=== PATIENT | female | born 1945 | race Caucasian/White ===

== ENCOUNTER 2022-04-17 20:07 | Outpatient (CLI) | payer MEDICARE, BC, SELFPAY | END 2022-04-17 20:08 | disposition home or self-care (01) | LOC: AMB 04-20 05:23 | PROVIDERS: PCP Family Medicine; Visit Provider Family Medicine | DX: R42 Dizziness and giddiness (principal) | CPT/HCPCS: A0998 ==

== ENCOUNTER 2022-10-08 12:58 | Outpatient (CLI) | payer MEDICARE, BC, SELFPAY | END 2022-10-08 12:59 | disposition home or self-care (01) | LOC: AMB 10-11 05:35 | PROVIDERS: PCP Family Medicine; Visit Provider Family Medicine | DX: Z99.3 Dependence on wheelchair (principal) | CPT/HCPCS: A0425; A0428 ==

== ENCOUNTER 2022-10-08 13:30 | Outpatient (CLI) | payer MEDICARE, BC, SELFPAY | END 2022-10-08 13:31 | disposition home or self-care (01) | LOC: AMB 10-11 05:46 | PROVIDERS: PCP Family Medicine; Visit Provider Family Medicine | DX: R53.1 Weakness (principal) | CPT/HCPCS: A0425; A0428; A0429 ==

== ENCOUNTER 2022-10-08 13:50 | Emergency (ER) | payer MEDICARE, BC, SELFPAY ==
[2022-10-08] VITALS (15 sets, daily range): BP systolic 134–181; BP diastolic 76–90; PULSE 52–66; RESP 18; TEMP 36.6; O2SAT 93–97; BMI 25.8
--- NOTE | 2022-10-08 13:55 | ED.NURSE ---
Report received from EMS, Per EMS they were assigned to do a wheelchair transport from the clinic to the patients home and back today. Due to EMS not having wheel chairs to do the transfer, a EMS stretcher was used. When EMS arrived on scene at the clinic, Dr Gonsalves was unable to see patient and pt requested to be transport to the emergency room.
--- NOTE | 2022-10-08 14:30 | ED.NURSE ---
Per EMS and the patient, the patient is scheduled to be admitted to [facility] on Tuesday. I Called [facility] in attempt to verify patients admission status. Gas Station Operator spoke with Yasemin, , who reports that patient does not have a bed available to her on Tuesday. Ebony and her have been emailing back and forth regarding requirements for admission and Yasemin has not yet received all the required information and there for cannot be accepted.
--- NOTE | 2022-10-08 15:00 | ED.NURSE ---
Patients daughter, Ebony [phone], was called by health underwriter to inform that patient was here in the emergency room. Patient daughter was verbally aggressive, yelling and using profanity. Farm Field Manager attempted to deescalate without success. Farm Field Manager informed Ebony that the patient was brought in from the clinic. The patient was vitally stable, ambulating to and from the bathroom and had no complaints of pain, etc. Ebony stated that her mother has been weak and unable to walk. Farm Field Manager reported to Ebony that the patient has ambulated to the bathroom using a walk with stand by assistance.
--- NOTE | 2022-10-08 15:00 | CRLHL7_ITS ---
For Patients: As a result of the Century Cures Act, medical imaging exams and procedure reports are released immediately into your electronic medical record. You may view this report before your referring provider. If you have questions, please contact your health care provider. INDICATION: Leg weakness. TECHNIQUE: Lumbar spine 2 views. COMPARISON: Lumbar spine radiographs 12/05/2020. FINDINGS: There are 5 lumbar type vertebral bodies. Left convex lumbar curve. Normal vertebral body alignment in the sagittal plane. There is a mild superior endplate compression fracture of T11 which appears new since prior exam. Lumbar vertebral body heights are otherwise maintained. Advanced spondylotic changes including endplate spurring, facet arthropathy, and multilevel severe disc space narrowing. The sacroiliac joints are normal in appearance. Partially visualized sternotomy wire and vascular stent. Extensive abdominal vascular calcifications. IMPRESSION: 1. New age-indeterminate mild superior endplate compression fracture of T11. 2. Left convex lumbar curve and advanced spondylotic changes similar to prior exam. Dictated by Harini Rodriguez MD @ 10/08/2022 3:53:32 PM (Electronically Signed)
--- NOTE | 2022-10-08 15:15 | ED.NURSE ---
Call to SW to help assist with DC planning
--- NOTE | 2022-10-08 15:27 | PC.NURSE ---
Patient needed to use the restroom. Metalizer assisted patient to bathroom. Patient was able to ambulate with walker and SBA to and from the bathroom without difficulty.
--- NOTE | 2022-10-08 15:30 | ED.NURSE ---
Talked with patient. She denies any pain, difficulty breathing, N/V/D, neuro symptoms. Neuros intact, VSS, REESE equally. Patient asking why she was sent to the emergency room, she was under impression that she was going to be seen by Dr Gonsalves and then would be admitted to [facility] on tuesday. Explained to patient that Hearing And Speech Assistant spoke with Ad[facility] at [facility] and she is not going to be admitted [facility] due to additional paperwork that needs to be completed by her daughter. Pt verbalized understanding of plan and requsted to call and speak with daughter.
--- NOTE | 2022-10-08 15:43 | PC.SOCIAL ---
Patient was to be admitted to [facility] on Tuesday, Oct 11. However, [facility], Admissions, Dora states that they require an H & P, medication list, order to admit and recent notes. They cannot admit until they receive these. Patient was unable to see Dr. Gonsalves today, due to arriving to the clinic by gurney from ambulance. Patient was sent to the emergency room. Daughter was hoping that her mother would be able to transfer from hospital to [facility] [place]. Daughter was informed that is not possible.This typewriter assembly and parts inspector called Dr. Gonsavles's office and scheduled the first available appointment on Tuesday10/12/22 at 1:15pm. This typewriter assembly and parts inspector left voicemails for patient's daughter, Jimena [phone] about appointment to assist her mother in getting documentation for [facility] admission. Daughter has not returned phone call. Vulnerable Adult report made on 10/08/2022
--- NOTE | 2022-10-08 16:32 | ED_ITS ---
HPI - General Adult General Date Seen: 10/08/22 Chief complaint: Weakness Stated complaint: Evaluation Time Seen by Provider: 10/08/22 13:55 Source: patient, EMS and RN notes reviewed Mode of arrival: EMS Limitations: no limitations History of Present Illness HPI narrative: Patient is a 77-year-old who arrives here via EMS. Apparently, she had a clinic appointment today which had been scheduled to arrange the necessary paperwork and other documentation for her to go to [facility] for rehab. She lives at home with her daughter. She has had difficulties with generalized weakness and difficulty navigating stairs for quite some time. As a result, there was a plan to get her into [facility], but she needed such things as an H&P, updated med list, etcetera, and therefore this clinic appointment had been made. Her daughter apparently it sounds like due to both work commitments and also because of the fact that her mother does not feel confident walking on stairs, had called 911 to utilize ambulance transport to get her to the clinic. This would have been a wheelchair transport, but the ambulance does not have wheelchairs, therefore she went by stretcher. When she arrived to the clinic, they assumed that she could not walk and therefore they sent her to the ER instead. On arrival here, she denies any urgent complaints. She says that she has felt a little unsteady on her feet for quite some time, she says that sometimes her legs just seem to kind of give out on her. She uses her walker sometimes, she acknowledges that she probably should use it all the time, but she does not. She says that she avoids using the stairs because she is afraid of falling. She says she has not actually fallen for quite some time. She denies any pain. She does not have any acute symptoms. She denies any recent fevers, headaches she says she has chronic sinus congestion. She has not had any chest pain or difficulty breathing. She has not had any nausea, vomiting or diarrhea. No abdominal pain. She has chronic incontinence but does not have any dysuria or unusual frequency or urgency. She does not have any back pain. She does not have any unusual leg pain or weakness. I did speak on the phone with Dr. Lomas, he was under the impression that she was not able to ambulate at all. He noted that she would need x-rays of her lumbar spine as she had a history of scoliosis. Related Data Home Medications Medication Instructions Recorded Confirmed amiodarone 200 mg tablet 200 mg PO QDAY 09/06/22 apixaban 2.5 mg tablet (Eliquis) 2.5 mg PO BID 09/06/22 atorvastatin 20 mg tablet 20 mg PO QHS 09/06/22 calcium citrate 200 mg (950 mg) 200 mg PO QDAY 09/06/22 tablet carvedilol 6.25 mg tablet 9.375 mg PO BID 09/06/22 cholecalciferol (vitamin D3) 25 25 mcg PO QDAY 09/06/22 mcg (1,000 unit) capsule diphenoxylate-atropine 2.5 1 - 2 tab PO BID PRN 09/06/22 mg-0.025 mg tablet (Lomotil) furosemide 40 mg tablet 40 mg PO QDAY 09/06/22 hydralazine 25 mg tablet 25 mg PO BID 09/06/22 isosorbide dinitrate 30 mg tablet 30 mg PO TID 09/06/22 nitroglycerin 0.4 mg sublingual 0.4 mg sublingual Q5M PRN 09/06/22 tablet paroxetine HCl 20 mg tablet 20 mg PO QPM 09/06/22 sitagliptin phosphate 25 mg tablet 25 mg PO QDAY 09/06/22 (Januvia) Previous Rx's Medication Instructions Recorded carbidopa 25 mg-levodopa 100 mg See Rx Instructions .Route 09/06/22 disintegrating tablet .COMPLEX #150 tabs Allergies Allergy/AdvReac Type Severity Reaction Status Date / Time No Known Drug Allergies Allergy Verified 10/08/22 13:57 Review of Systems Status of ROS: Reports: 10 or more systems reviewed and unremarkable except as noted in History and below [facility] Surgical History History of appendectomy (06/17/09) History of cholecystectomy (06/17/09) History of coronary artery stent placement History of left breast biopsy (06/17/09) 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 In general, an alert, well-appearing elderly woman. Head: Normocephalic, atraumatic. Eyes: Pupils are equal reactive. Extraocular movements are full. Conjunctivae are normal. ENT: Mucous membranes are moist. Throat is normal. Neck: Supple without lymphadenopathy. Heart: Regular rate and rhythm. No murmur or rub. Lungs: Clear bilaterally. No increased work of breathing, crackles or wheezes. Abdomen: Soft and nontender. No organomegaly. Extremities: Well perfused. No edema. No calf tenderness. Pulses intact. Neurologic: Patient is alert and oriented to person and place. Speech is fluent. Face is symmetric. Moves all extremities equally. Strength is 5 of 5 in bilateral lower extremities. Sensation is intact to light touch. Her gait was stable with her walker, she was able to stand up from her bed without assistance. Gait is not broad-based or antalgic, she does walk slowly and with a slightly shuffling gait. Affect: Normal. Skin: Warm and dry. Well perfused. Const: Vital Signs, click to edit/add: Vital Signs - 24 hr 10/08/22 13:59 10/08/22 15:42 10/08/22 15:43 Temperature 97.9 F Pulse Rate 59 L 55 L Pulse Rate [Pulse Oximeter] 52 L Respiratory Rate 18 Blood Pressure 166/88 H Blood Pressure [Ri ght Upper Arm] 134/77 Pulse Oximetry 94 97 97 Oxygen Delivery Me thod Room Air 10/08/22 15:45 10/08/22 16:00 10/08/22 16:02 Temperature Pulse Rate 57 L 58 L 56 L Pulse Rate [Pulse Oximeter] Respiratory Rate Blood Pressure 165/83 H Blood Pressure [Ri ght Upper Arm] Pulse Oximetry 96 96 94 Oxygen Delivery Me thod 10/08/22 16:15 10/08/22 16:33 10/08/22 16:34 Temperature Pulse Rate 54 L 66 65 Pulse Rate [Pulse Oximeter] Respiratory Rate Blood Pressure 181/85 H Blood Pressure [Ri ght Upper Arm] Pulse Oximetry 94 96 96 Oxygen Delivery Me thod Documenting provider has reviewed patient's vital signs: yes Course Course Hospital Course: I did do x-rays of her lumbar spine since that was something that Dr. Gonsalves mentioned wanting done. She has significant degenerative changes, read by Radiology as following: IMPRESSION: 1. New age-indeterminate mild superior endplate compression fracture of T11. 2. Left convex lumbar curve and advanced spondylotic changes similar to prior exam She does not have any complaints of back pain, so I do not think the compression fracture is likely new. She does not have any neurologic deficiencies in her lower extremities. She is ambulatory here without difficulty. She does not have any acute complaints today. She she does not present to the emergency department because of concerns leading to her seeking emergency care, but rather an inadvertent diversion here from clinic. The patient's nurse spoke with her daughter shortly after her arrival here, and we attempted to have social science analyst speak with her as well, but after the nurses initial interaction with her she is no longer answering her phone. community services coordinator was finally able to speak with her daughter. Patient has remained stable here without complaints. We have made her a follow-up appoint with Dr. Gonsalves on Tuesday, her daughter is comfortable with discharge home at this time. Vital Signs Vital signs: Initial Vital Signs Temperature 97.9 F 10/08/22 13:59 Temperature Source Temporal Artery Scan 10/08/22 13:59 Pulse Rate 52 L 10/08/22 13:59 Pulse Rhythm 10/08/22 13:59 Respiratory Rate 18 10/08/22 13:59 Blood Pressure 134/77 10/08/22 13:59 Blood Pressure Mean 96 10/08/22 13:59 Blood Pressure Position Supine 10/08/22 13:59 Pulse Oximetry 94 10/08/22 13:59 Oxygen Delivery Method 10/08/22 13:59 Vital Signs Temperature 97.9 F 10/08/22 13:59 Pulse Rate 52 L 10/08/22 13:59 Respiratory Rate 18 10/08/22 13:59 Blood Pressure 134/77 10/08/22 13:59 Pulse Oximetry 94 10/08/22 13:59 Oxygen Delivery Method 10/08/22 13:59 Temperature 97.9 F 02/17/23 13:59 Pulse Rate 65 10/08/22 16:34 Respiratory Rate 18 10/08/22 13:59 Blood Pressure 181/85 H 10/08/22 16:34 Pulse Oximetry 96 10/08/22 16:34 Oxygen Delivery Method 10/08/22 13:59 Discharge Plan Discharge Clinical Impression: Weakness Patient Disposition: Home, Self-Care Condition: Stable Instructions: Weakness (ED) Additional Instructions: Appt with Dr Gonsalves on Tuesday at 1:15pm. Please check in at 1pm. Prescriptions: No Action amiodarone 200 mg tablet 200 mg PO QDAY Eliquis 2.5 mg tablet 2.5 mg PO BID atorvastatin 20 mg tablet 20 mg PO QHS carvedilol 6.25 mg tablet 9.375 mg PO BID Rx Instructions: must administer with a meal/food furosemide 40 mg tablet 40 mg PO QDAY hydralazine 25 mg tablet 25 mg PO BID isosorbide dinitrate 30 mg tablet 30 mg PO TID Rx Instructions: allow nitrate-free interval of 12-14 hrs per 24-hr period paroxetine HCl 20 mg tablet 20 mg PO QPM Januvia 25 mg tablet 25 mg PO QDAY cholecalciferol (vitamin D3) 25 mcg (1,000 unit) capsule 25 mcg PO QDAY calcium citrate 200 mg (950 mg) tablet 200 mg PO QDAY diphenoxylate-atropine [Lomotil] 2.5-0.025 mg tablet 1 - 2 tab PO BID PRN nitroglycerin 0.4 mg tablet, sublingual 0.4 mg sublingual Q5M PRN Rx Instructions: do not exceed 3 doses per episode carbidopa-levodopa 25-100 mg tablet,disintegrating See Rx Instructions .ROUTE .COMPLEX Qty: 150 11RF Dose Instruction: DISSOLVE ONE TABLET BY MOUTH AT 7AM. MAY REPEAT EVERY 3 HOURS FOR A TOTAL OF 5 DAILY Rx Instructions: DISSOLVE ONE TABLET BY MOUTH AT 7AM. MAY REPEAT EVERY 3 HOURS FOR A TOTAL OF 5 DAILY Follow Up/Referrals: David Gonsalves MD [Primary Care Provider] - Stand Alone Forms: [facility] Info Instructions
--- NOTE | 2022-10-08 16:39 | ED.NURSE ---
Pt ambulated from Room 3 to ED bathroom, approximatley [address] Pt used 2 wheeled walker appropriately.
--- NOTE | 2022-10-08 16:44 | PC.SOCIAL ---
[facility] report made #[id number]
--- NOTE | 2022-10-08 17:00 | ED.NURSE ---
Pt offered dinner - provided.
--- NOTE | 2022-10-08 17:00 | PC.SOCIAL ---
Call back from daughterJimena. She states that her home is a split level and her mother cannot do stairs. Daughter is planning on having EMS bring her mother back to her home and help her up the stairs to her room. Jimena Lei is aware of new appointment for her mother on Tuesday with Dr. Gonsalves.
--- NOTE | 2022-10-08 21:48 | ED.NURSE ---
EMS arrived for wheelchair transport back to home. DaughterJimena contacted and will be home to meet patient.
== END 2022-10-08 21:54 | disposition home or self-care (01) ==
PROVIDERS: Emergency Provider Emergency Medicine; PCP Family Medicine
DX: R53.1 Weakness (principal)
CPT/HCPCS: 72100; 99283; 99284

== ENCOUNTER 2022-10-08 21:25 | Outpatient (CLI) | payer MEDICARE, BC, SELFPAY | END 2022-10-08 21:26 | disposition home or self-care (01) | LOC: AMB 10-11 06:35 | PROVIDERS: PCP Family Medicine; Visit Provider Internal Medicine | DX: R53.1 Weakness (principal) | CPT/HCPCS: A0425; A0428 ==

== ENCOUNTER 2022-10-18 10:59 | Outpatient (CLI) | payer MEDICARE, BC, SELFPAY | END 2022-10-18 11:00 | disposition home or self-care (01) | LOC: AMB 10-21 10:40 | PROVIDERS: PCP Family Medicine; Visit Provider Emergency Medicine Emergency Medical Services | DX: R53.1 Weakness (principal); G20 Parkinson's disease | CPT/HCPCS: A0425; A0428 ==

== ENCOUNTER 2022-12-10 16:06 | Outpatient (CLI) | payer MEDICARE, BC, SELFPAY | END 2022-12-10 16:07 | disposition home or self-care (01) | LOC: LONREF 16:09 | PROVIDERS: PCP Family Medicine; Visit Provider Family Medicine | DX: I10 Essential (primary) hypertension (principal); E11.9 Type 2 diabetes mellitus without complications; N18.2 Chronic kidney disease, stage 2 (mild); G20 Parkinson's disease; E04.1 Nontoxic single thyroid nodule; R53.1 Weakness; I25.10 Atherosclerotic heart disease of native coronary artery without angina pectoris; F32.A Depression, unspecified | CPT/HCPCS: 80048 ==

== ENCOUNTER 2022-12-10 20:13 | Outpatient (CLI) | payer MEDICARE, BC, SELFPAY | END 2022-12-10 20:14 | disposition home or self-care (01) | LOC: AMB 12-11 18:10 | PROVIDERS: PCP Family Medicine; Visit Provider Internal Medicine | DX: R53.1 Weakness (principal) | CPT/HCPCS: A0998 ==

== ENCOUNTER 2023-01-18 22:00 | Outpatient (CLI) | payer MEDICARE, BC, SELFPAY | END 2023-01-18 22:01 | disposition home or self-care (01) | LOC: AMB 02-04 04:18 | PROVIDERS: PCP Family Medicine; Visit Provider Family Medicine | DX: R56.9 Unspecified convulsions (principal); I46.9 Cardiac arrest, cause unspecified | CPT/HCPCS: A0429 ==